=== PATIENT | female | born 1945 | race Caucasian/White ===

== ENCOUNTER 2017-09-02 10:25 | Outpatient (CLI) | payer MEDICARE ==
--- NOTE | 2017-09-02 13:16 | MMO ---
BASELINE SCREENING MAMMOGRAMS: 09/02/2017 HISTORY: Screening examination. COMPARISON: None. FINDINGS: The patient's mammogram is interpreted with the assistance of computer aided detection. Scattered fibroglandular densities are present. Benign microcalcifications are noted bilaterally. There is no dominant mass or architectural distort ion. No concerning microcalcification are seen. IMPRESSION: BI-RADS Category 2: Benign findings. Recommend annual screening mammography. POS: NATALIIA
== END 2017-09-02 10:26 | disposition home or self-care (01) ==
LOC: SCSMAMMO 10:25
PROVIDERS: ATTEND Family Medicine
DX: Z12.31 Encounter for screening mammogram for malignant neoplasm of breast (principal)
CPT/HCPCS: 77067

== ENCOUNTER 2020-08-27 09:14 | Inpatient (IN) | payer OTHER, MEDICARE ==
[2020-08-27 12:56] VITALS: BMI 38.6
[2020-08-27] MEDS ORDERED: Fentanyl 100 MCG/2 ML VIAL ONE ×3 (14:44→17:14)
[2020-08-27] MEDS ORDERED: Ketamine 50 MG/ML (10ML VIAL) ONE (14:44)
[2020-08-27] MEDS ORDERED: CEFAZOLIN 2 GM in Premix Bag 1 BAG IVPB SCH (14:45)
[2020-08-27] MEDS ORDERED: Promethazine HCl 25 MG/ML VIAL SLOW IVP PRN (14:50)
[2020-08-27] MEDS ORDERED: Promethazine HCl 25 MG/ML VIAL IM PRN (14:50)
[2020-08-27] MEDS ORDERED: Ondansetron HCl/PF 4 MG/2 ML Vial IVP PRN (14:50)
[2020-08-27] MEDS ORDERED: Dexamethasone 20 MG/5 ML VIAL ONE (15:28)
[2020-08-27] MEDS ORDERED: Rocuronium Bromide 10 MG/ML (10ML VIAL) ONE (15:28)
[2020-08-27] MEDS ORDERED: Ondansetron PF 4 MG/2 ML Vial ONE (15:28)
[2020-08-27] MEDS ORDERED: PROPOFOL 200 MG/20 ML VIAL ONE (15:28)
[2020-08-27] MEDS ORDERED: Lidocaine 1% PF 5 ML VIAL ONE (15:28)
[2020-08-27] MEDS ORDERED: Ondansetron PF 4 MG/2 ML Vial IVP PRN (16:17)
[2020-08-27] MEDS ORDERED: Cyclobenzaprine 10 MG TAB PO PRN (16:17)
[2020-08-27] MEDS ORDERED: Dextrose 50% Abboject 50 ML SYRINGE SLOW IVP PRN (16:17)
[2020-08-27] MEDS ORDERED: Ondansetron ODT 4 MG TAB PO PRN (16:17)
[2020-08-27] MEDS ORDERED: traMADol HCl 50 MG TAB PO PRN (16:17)
[2020-08-27] MEDS ORDERED: Dextrose 5% in Water 1,000 ML IV PRN (16:17)
[2020-08-27] MEDS ORDERED: Morphine 2 MG/ML VIAL SLOW IVP PRN (16:17)
[2020-08-27] MEDS ORDERED: hydrALAZINE 20 MG/ML VIAL SLOW IVP PRN (16:17)
[2020-08-27] MEDS ORDERED: SUGAMMADEX SODIUM 200 MG/2 ML VIAL ONE (16:32)
[2020-08-27] MEDS: Acetaminophen 325 MG TAB PO SCH ×2 (18:22→23:16)
[2020-08-27] MEDS: Sodium Chloride 0.9% 1,000 ML IV SCH (18:22)
[2020-08-27] MEDS: Ibuprofen 200 MG TAB PO SCH (18:22)
[2020-08-27] MEDS ORDERED: Montelukast Sodium 10 mg Tablet PO SCH (22:15)
[2020-08-27] MEDS ORDERED: Mometasone 100 MCG/Formoterol 5 MCG 120 PUFF INHALER INH SCH (22:15)
[2020-08-27] MEDS: CEFAZOLIN 2 GM in Premix Bag 1 BAG IVPB SCH (23:15)
[2020-08-28] MEDS: Sodium Chloride 0.9% 1,000 ML IV SCH (01:20)
[2020-08-28] MEDS: Ibuprofen 200 MG TAB PO SCH ×3 (01:20→18:04)
[2020-08-28 05:16] LABS: #Lymphocytes 1.1 thou/uL (1.20-3.40); #Monocytes 0.5 thou/uL (0.11-0.59); #Neutrophils 11.9 thou/uL (1.40-6.50); %Basophils 0.1 % (0.0-1.0); %Eosinophils 0.1 % (0.0-10.0); %Lymphocytes 8.2 % (21.0-51.0); %Monocytes 3.8 % (0.0-10.0); %Neutrophils 87.8 % (42.0-75.0); Mean Corpuscular HGB CONC 35.3 g/dL (32.0-36.0); Mean Corpuscular Hemoglobin 33.2 pg (27.0-31.0); Mean Corpuscular Volume 94.1 fL (78.0-98.0); Mean Platelet Volume 9.5 fL (7.4-10.4); Platelet Count 189 thou/uL (130-400); RBC Distribution Width 11.7 % (11.5-14.5); White Blood Cell (WBC) Count 13.5 thou/uL (4.8-10.8)
[2020-08-28 05:39] LABS: Anion Gap 11 mmol/L (10-20); BUN (Urea Nitrogen) 23 mg/dL (9.8-20.1); Calc. Creatinine Clearance 60 mL/min (70-130); Calcium 8.3 mg/dL (7.8-10.44); Carbon Dioxide 24 mmol/L (23-31); Chloride 103 mmol/L (98-107); Glucose 146 mg/dL (83-110); Magnesium 1.8 mg/dL (1.6-2.6); Potassium 4.1 mmol/L (3.5-5.1); Sodium 134 mmol/L (136-145)
[2020-08-28] MEDS: Acetaminophen 325 MG TAB PO SCH ×3 (05:41→18:46)
[2020-08-28] MEDS: CEFAZOLIN 2 GM in Premix Bag 1 BAG IVPB SCH (05:41)
[2020-08-28] MEDS: traMADol HCl 50 MG TAB PO PRN ×2 (09:17→16:29)
[2020-08-28] MEDS: Famotidine 20 MG TAB PO SCH (09:17)
[2020-08-28] MEDS: Aspirin 81 mg Enteric Coated Tablet PO SCH ×2 (09:18→20:27)
[2020-08-28] MEDS: Triamterene/Hydrochlorothiazide 37.5 mg/25 mg Tablet PO SCH (10:26)
[2020-08-28] MEDS ORDERED: Mometasone 100 MCG/Formoterol 5 MCG 120 PUFF INHALER INH SCH (18:30)
[2020-08-28] MEDS ORDERED: Montelukast Sodium 10 mg Tablet PO SCH (21:00)
[2020-08-29] MEDS: Acetaminophen 325 MG TAB PO SCH ×3 (00:27→13:51)
[2020-08-29] MEDS: Ibuprofen 200 MG TAB PO SCH ×2 (03:16→10:41)
[2020-08-29 08:36] VITALS: BP 121/80; TEMP 98.3
[2020-08-29] MEDS: Famotidine 20 MG TAB PO SCH (10:40)
[2020-08-29] MEDS: Triamterene/Hydrochlorothiazide 37.5 mg/25 mg Tablet PO SCH (10:41)
[2020-08-29] MEDS: Aspirin 81 mg Enteric Coated Tablet PO SCH (10:41)
[2020-08-29] MEDS: traMADol HCl 50 MG TAB PO PRN (10:44)
== END 2020-08-29 14:45 | disposition home health service (06) | DRG 522 ==
LOC: SURG B 09:14
PROVIDERS: ADMIT Surgery; ATTEND Surgery
PROC: 0SRR0JA Replacement of Right Hip Joint, Femoral Surface with Synthetic Substitute, Uncemented, Open Approach (ICD-10-PCS; principal; 2020-08-27)
DX: S72.001A Fracture of unspecified part of neck of right femur, initial encounter for closed fracture (principal); Z20.822 Contact with and (suspected) exposure to COVID-19; J44.9 Chronic obstructive pulmonary disease, unspecified; E78.5 Hyperlipidemia, unspecified; N18.9 Chronic kidney disease, unspecified; J30.2 Other seasonal allergic rhinitis; I12.9 Hypertensive chronic kidney disease with stage 1 through stage 4 chronic kidney disease, or unspecified chronic kidney disease; W01.0XXA Fall on same level from slipping, tripping and stumbling without subsequent striking against object, initial encounter; Y92.511 Restaurant or cafe as the place of occurrence of the external cause; Z79.899 Other long term (current) drug therapy; Z79.82 Long term (current) use of aspirin; Z79.1 Long term (current) use of non-steroidal anti-inflammatories (NSAID)
CPT/HCPCS: 36415; 72170; 80048; 83735; 84100; 85025; C1776; J0690; J1100; J2405; J2704; J3010

== ENCOUNTER 2021-08-20 08:07 | Outpatient (CLI) | payer MEDICARE ==
[2021-08-20 15:08] LABS: #Eosinphils 0.2 thou/uL (0.0-0.7); #Lymphocytes 2.1 thou/uL (1.20-3.40); #Monocytes 0.4 thou/uL (0.11-0.59); #Neutrophils 3.8 thou/uL (1.40-6.50); %Basophils 0.4 % (0.0-1.0); %Eosinophils 2.5 % (0.0-10.0); %Lymphocytes 32.3 % (21.0-51.0); %Neutrophils 58.9 % (42.0-75.0); Hemoglobin 13.8 g/dL (12.0-16.0); Mean Corpuscular HGB CONC 33.5 g/dL (32.0-36.0); Mean Corpuscular Hemoglobin 32.4 pg (27.0-31.0); Mean Corpuscular Volume 96.8 fL (78.0-98.0); Mean Platelet Volume 9.9 fL (7.4-10.4); Platelet Count 227 thou/uL (130-400); RBC Distribution Width 12.2 % (11.5-14.5); Red Blood Cell (RBC) Count 4.27 mill/uL (4.20-5.40); White Blood Cell (WBC) Count 6.4 thou/uL (4.8-10.8)
[2021-08-20 15:28] LABS: Bacteria/HPF None Seen HPF (None Seen); Bilirubin Negative (Negative); Blood, Urine Negative (Negative); Clarity Clear (Clear); Glucose, Urine (Dipstick) Normal (Negative); Ketone, Urine Negative (Negative); Leukocyte 25 Leu/uL (Negative); Nitrite Negative (Negative); Protein, Urine (Dipstick) Negative (Neg-Trace); RBC/HPF 0-3 HPF (0-3); Specific Gravity, Urine 1.016 (1.002-1.036); Urobilinogen Normal mg/dL (Less than 2); WBC/HPF 0-3 HPF (0-3); pH, Urine 6.5 (5.0-9.0)
[2021-08-20 15:57] LABS: Free T4 (Free Thyroxine) 0.76 ng/dL (0.70-1.48); Thyroid Stimulating Hormone 1.8452 uIU/mL (0.35-4.94)
[2021-08-20 16:20] LABS: Hemoglobin A1c 5.9 % (4.0-6.0)
[2021-08-20 16:21] LABS: ALT (SGPT) 18 U/L (8-55); AST (SGOT) 19 U/L (5-34); Albumin 4.6 g/dL (3.4-4.8); Alkaline Phosphatase 96 U/L (40-110); Anion Gap 14 mmol/L (10-20); BUN (Urea Nitrogen) 22 mg/dL (9.8-20.1); Bilirubin, Total 0.5 mg/dL (0.2-1.2); Calc. Creatinine Clearance 0 mL/min (70-130); Calcium 9.8 mg/dL (7.8-10.44); Carbon Dioxide 28 mmol/L (23-31); Cardiac Risk 2.7 (Less than 4.5); Chloride 103 mmol/L (98-107); Cholesterol 158 mg/dl (< 200 Desired); Globulin 2.9 g/dL (2.4-3.5); Glucose 102 mg/dL (83-110); HDL Cholesterol 58 mg/dL (>60 Neg Risk); LDL Cholesterol, Calculated 72 mg/dL; Potassium 4.1 mmol/L (3.5-5.1); Protein, Total 7.5 g/dL (5.8-8.1); Sodium 141 mmol/L (136-145); Triglycerides 142 mg/dL (Less than 150)
== END 2021-08-20 08:08 | disposition home or self-care (01) ==
LOC: SCSRAD 08:07
PROVIDERS: ATTEND Family Medicine
DX: M79.604 Pain in right leg (principal); I12.9 Hypertensive chronic kidney disease with stage 1 through stage 4 chronic kidney disease, or unspecified chronic kidney disease; N18.30 Chronic kidney disease, stage 3 unspecified; E78.5 Hyperlipidemia, unspecified; M17.11 Unilateral primary osteoarthritis, right knee; Z96.651 Presence of right artificial knee joint
CPT/HCPCS: 36415; 80053; 80061; 81003; 81015; 83036; 84439; 84443; 85025